=== PATIENT | female | born 1985 | race Caucasian/White ===

== ENCOUNTER 2022-11-22 04:53 | Emergency (ER) | payer BC, MEDICAID ==
[2022-11-22 05:57] LABS: BASOPHILS PERCENT AUTO 0.4 % (0.2-1.5); EOSINOPHILS ABSOLUTE AUTO 0.1 x10-3/uL (0.0-0.8); EOSINOPHILS PERCENT AUTO 0.5 % (0.6-8.1); HEMATOCRIT 40.1 % (34.2-48.2); HEMOGLOBIN 13.2 g/dL (11.4-15.5); LYMPHOCYTES ABSOLUTE AUTO 1.3 x10-3/uL (1.0-4.4); LYMPHOCYTES PERCENT AUTO 10.8 % (18.4-52.1); MEAN CORPUSCULAR HEMOGLOBIN 26.7 pg (23.9-33.9); MEAN CORPUSCULAR HGB CONC 32.9 g/dL (31.9-34.8); MEAN CORPUSCULAR VOLUME 81.3 fL (76.7-100.5); MEAN PLATELET VOLUME 8.2 fL (7.1-12.4); MONOCYTES ABSOLUTE AUTO 0.5 x10-3/uL (0.3-1.0); MONOCYTES PERCENT AUTO 4.4 % (4.4-15.7); NEUTROPHILS ABSOLUTE AUTO 9.9 x10-3/uL (1.5-6.3); NEUTROPHILS PERCENT AUTO 83.9 % (30.8-76.2); PLATELET COUNT,PLT 284 x10(3)uL (151-488); RED BLOOD CELL COUNT 4.94 x10(6)uL (3.60-5.20); RED CELL DISTRIBUTION WIDTH 13.4 % (12.3-16.5); WHITE BLOOD CELL COUNT,WBC 11.9 x10-3/uL (3.0-10.3)
[2022-11-22 06:00] LABS: BLOOD UREA NITROGEN,BUN 10 mg/dL (7-18); BUN/CREATININE RATIO 11.1 (9-20); CALCIUM 8.9 mg/dL (8.6-10.2); CARBON DIOXIDE,CO2 25 mmol/L (21-32); CHLORIDE,CL 103 mmol/L (100-110); CREATININE 0.9 mg/dL (0.55-1.02); EST CRCL DRUG DOSING (CG) 75.34 mL/min; ESTIMATED GFR 86 mL/min (>60); GLUCOSE RANDOM 127 mg/dL (80-116); POTASSIUM,K 3.9 mmol/L (3.5-5.3); SODIUM,NA 136 mmol/L (135-145)
[2022-11-22 06:01] LABS: LIPASE 71 U/L (16-77)
[2022-11-22 06:02] LABS: BILIRUBIN,URINE NEGATIVE (NEGATIVE); GLUCOSE,URINE NORMAL (NORMAL); KETONES,URINE NEGATIVE (NEGATIVE); LEUKOCYTE ESTERASE,URINE MODERATE (NEGATIVE); NITRITE,URINE NEGATIVE (NEGATIVE); OCCULT BLOOD,URINE NEGATIVE (NEGATIVE); PROTEIN,URINE NEGATIVE (NEGATIVE); UROBILINOGEN,URINE NORMAL (NEGATIVE)
[2022-11-22 06:03] LABS: C-REACTIVE PROTEIN < 0.2 mg/dL (0.5-0.9)
[2022-11-22] MEDS ORDERED: Iopamidol 755 Mg/ML 100 ML Bottle IV ONE (06:05)
[2022-11-22 06:09] LABS: AMORPHOUS SEDIMENT,URINE OCCASIONAL; APPEARANCE,URINE CLEAR (CLEAR); BACTERIA,URINE MODERATE (NS); COLOR,URINE YELLOW (YELLOW); RBC,URINE 0-5 (0-5); SQUAMOUS EPITHELIAL CELLS,UR FEW (NS,R,O); WBC,URINE 0-5 (0-5)
[2022-11-22 06:18] LABS: ALBUMIN 3.6 g/dL (3.5-5.2); ALKALINE PHOSPHATASE 105 IU/L (56-112); BILIRUBIN TOTAL 0.8 mg/dL (0.1-1.3); PROTEIN TOTAL,TP 7.3 g/dL (6.0-8.0)
[2022-11-22 06:20] LABS: ALANINE AMINOTRANSFERASE,ALT 152 U/L (12-36); ASPARTATE AMNIOTRANSFERASE,AST 217 IU/L (5-25)
[2022-11-22] MEDS ORDERED: Sodium Chloride 0.9% 1,000 ML IV ONE (07:08)
[2022-11-22] MEDS ORDERED: LORazepam 2 MG/ML SDV IVPUSH ONE (07:49)
[2022-11-22] MEDS ORDERED: Ketorolac 30 MG/ML SDV IVPUSH ONE (08:08)
[2022-11-22 09:22] VITALS: BP 148/98; PULSE 77
== END 2022-11-22 08:29 | disposition home or self-care (01) ==
LOC: FB.ED 04:53
DX: K80.66 Calculus of gallbladder and bile duct with acute and chronic cholecystitis without obstruction (principal); R74.01 Elevation of levels of liver transaminase levels; N39.0 Urinary tract infection, site not specified
CPT/HCPCS: 36415; 74177; 80053; 81001; 83690; 85025; 86140; 87086; 93005; 96361; 96374; 99284-25; J1885; J7030; Q9967

== ENCOUNTER 2022-12-11 10:05 | Day surgery (SDC) | payer BC ==
[~2022-12-11 10:05] MED LIST: Sodium Chloride 0.9% 10 ML Syringe FLUSH PRN
[2022-12-11] MEDS ORDERED: Neostigmine Methylsulfate 10 MG/10 ML MDV IVPUSH ONE (10:06)
[2022-12-11] MEDS ORDERED: diphenhydrAMINE 50 MG/ML SDV IVPUSH ONE (10:06)
[2022-12-11] MEDS ORDERED: Dexamethasone 4 MG/ML 5 ML MDV IVPUSH ONE (10:06)
[2022-12-11] MEDS ORDERED: Propofol 200 MG/20 ML SDV IV ONE (10:06)
[2022-12-11] MEDS ORDERED: Midazolam 1 MG/ML 2 ML SDV IV ONE (10:06)
[2022-12-11] MEDS ORDERED: Succinylcholine 200 MG/10 ML MDV IV ONE (10:06)
[2022-12-11] MEDS ORDERED: Lactated Ringers 1,000 ML IV ONE (10:06)
[2022-12-11] MEDS ORDERED: Glycopyrrolate 0.2 MG/ML 5 ML MDV IV ONE (10:06)
[2022-12-11] MEDS ORDERED: Ketorolac 30 MG/ML SDV IVPUSH ONE (10:06)
[2022-12-11] MEDS ORDERED: Rocuronium 100 MG/10 ML MDV IV ONE (10:06)
[2022-12-11] MEDS ORDERED: fentaNYL 100 MCG/2 ML SDV IV ONE (10:06)
[2022-12-11] MEDS: Lactated Ringers 1,000 ML IV SCH (11:00)
[2022-12-11] MEDS: Acetaminophen 500 MG Tab PO ONE (11:27)
[2022-12-11] MEDS: Gabapentin 300 MG Cap PO ONE (11:27)
[2022-12-11] MEDS: Bupivacaine 0.5%/EPINEPHrine 1:200,000 10 ML SDV INJECT ONE (11:57)
[2022-12-11 15:15] VITALS: BP 142/75; PULSE 67
== END 2022-12-11 15:07 | disposition home or self-care (01) ==
LOC: FB.SDS 10:05
PROVIDERS: ATTEND Surgery
DX: K80.10 Calculus of gallbladder with chronic cholecystitis without obstruction (principal); E66.01 Morbid (severe) obesity due to excess calories; Z79.2 Long term (current) use of antibiotics; Z88.0 Allergy status to penicillin; Z68.41 Body mass index [BMI] 40.0-44.9, adult
CPT/HCPCS: 00790; 47562; 88304; A9270; J0330; J0690; J1100; J1200; J1885; J2250; J2704; J2710; J3010; J3490; J7120

== ENCOUNTER 2022-12-15 11:03 | Emergency (ER) | payer BC ==
[2022-12-15 11:43] VITALS: BP 129/88; PULSE 99
== END 2022-12-15 11:50 | disposition home or self-care (01) ==
LOC: FB.ED 11:03
DX: H60.93 Unspecified otitis externa, bilateral (principal); Z88.0 Allergy status to penicillin; Z98.890 Other specified postprocedural states
CPT/HCPCS: 99282